=== PATIENT | female | born 1980 | race Caucasian/White ===

== ENCOUNTER 2018-06-20 22:09 | Emergency (ER) | payer SELFPAY ==
[~2018-06-20] VITALS: Ht 167.6 cm; Wt 118.6 kg
[~2018-06-20 22:09] MED LIST: PRENATAL1 TA1 PO
[2018-06-20 22:17] VITALS: BP 141/87; TEMP 97.4
[2018-06-20] MEDS ORDERED: PRILOSEC10 MG PO (23:02)
[2018-06-20] MEDS ORDERED: SINGULAIR 110 MG/TAB PO (23:02)
[2018-06-20] MEDS ORDERED: CLARITIN 1010 MG/TAB PO (23:02)
[2018-06-20] MEDS ORDERED: BIRTH CONTROL (23:03)
[2018-06-20 23:31] VITALS: PULSE 87
== END 2018-06-20 23:31 | disposition home or self-care (01) ==
LOC: COL.ER 22:09
DX: S20.219A Contusion of unspecified front wall of thorax, initial encounter (principal); W01.198A Fall on same level from slipping, tripping and stumbling with subsequent striking against other object, initial encounter; Y92.59 Other trade areas as the place of occurrence of the external cause

== ENCOUNTER 2018-08-23 15:09 | Outpatient (RCR) | payer OTHER ==
[~2018-08-23 15:09] MED LIST changes: +BIRTH CONTROL; +CLARITIN 1010 MG/TAB PO; +PRILOSEC10 MG PO; +SINGULAIR 110 MG/TAB PO
== END 2018-09-25 15:27 | disposition home or self-care (01) ==
LOC: WSOH 15:09
DX: S20.211A Contusion of right front wall of thorax, initial encounter (principal); R07.89 Other chest pain; W01.0XXA Fall on same level from slipping, tripping and stumbling without subsequent striking against object, initial encounter; Y92.512 Supermarket, store or market as the place of occurrence of the external cause; Y93.01 Activity, walking, marching and hiking; Y99.0 Civilian activity done for income or pay; K21.9 Gastro-esophageal reflux disease without esophagitis; Z79.899 Other long term (current) drug therapy

== ENCOUNTER 2018-11-16 14:56 | Outpatient (RCR) | payer OTHER | END 2018-12-21 13:21 | disposition home or self-care (01) | LOC: WSOH 14:56 | DX: R07.89 Other chest pain (principal); S20.211D Contusion of right front wall of thorax, subsequent encounter ==

== ENCOUNTER 2020-09-15 18:38 | Emergency (ER) | payer BC ==
[~2020-09-15] VITALS: Ht 167.6 cm; Wt 121.8 kg
[2020-09-15 18:54] VITALS: TEMP 98.1
[2020-09-15 19:38] LABS: PH 5 (5-8); URINE APPEARANCE Turbid; URINE BACTERIA None Seen /hpf; URINE BILIRUBIN Negative (NEGATIVE); URINE BLOOD 3+ (NEGATIVE); URINE COLOR Amber; URINE GLUCOSE Negative (NEGATIVE); URINE KETONE Negative (NEGATIVE); URINE LEUKOCYTE ESTERASE 3+ (NEGATIVE); URINE NITRATE Negative (NEGATIVE); URINE PROTEIN(semi-quant) 2+ (NEGATIVE); URINE RBC >50 /hpf; URINE UROBILINOGEN Negative (NEGATIVE); URINE WBC >50 /hpf
[2020-09-15 19:46] LABS: COLLECTION METHOD CLEAN CATCH
[2020-09-15] MEDS ORDERED: PYRIDIUM 100MG100 MG PO (19:54)
[2020-09-15] MEDS ORDERED: MACROBID 1100 MG/CAP PO (19:54)
[2020-09-15 19:59] VITALS: BP 130/71; PULSE 78
== END 2020-09-15 20:05 | disposition home or self-care (01) ==
LOC: COL.ER 18:38
PROVIDERS: Nurse Practitioner Primary Care
DX: N39.0 Urinary tract infection, site not specified (principal); K21.9 Gastro-esophageal reflux disease without esophagitis; Z32.02 Encounter for pregnancy test, result negative